=== PATIENT | female | born 1995 | race Caucasian/White ===

== ENCOUNTER 2020-03-12 10:35 | Emergency (ER) | payer OTHER, MEDICAID ==
[~2020-03-12] VITALS: Ht 154.9 cm; Wt 81.7 kg
[2020-03-12] MEDS ORDERED: ESCITALOPRAM (10:43)
[2020-03-12] MEDS ORDERED: IBUPROFEN 800800 M1 PO (11:34)
[2020-03-12] MEDS ORDERED: ZANAFLEX4 MG PO (11:34)
[2020-03-12 11:46] VITALS: BP 121/75
== END 2020-03-12 11:47 | disposition home or self-care (01) ==
LOC: M.ERS 10:35
DX: M25.511 Pain in right shoulder (principal); X50.0XXA Overexertion from strenuous movement or load, initial encounter; Y93.89 Activity, other specified; Y92.89 Other specified places as the place of occurrence of the external cause; Y99.8 Other external cause status